=== PATIENT | male | born 1960 | race Caucasian/White ===

== ENCOUNTER 2018-03-30 12:55 | Emergency (ER) | payer BC, SELFPAY ==
[2018-03-30 13:08] VITALS: BP 157/93; PULSE 70; RESP 16; TEMP 36.7; O2SAT 98
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
[2018-03-30] MEDS: MORPHine 10 MG/ML VIAL 4 MG IVP (15:44)
[2018-03-30] MEDS: Ondansetron 4 MG/2 ML VIAL IVP (15:45)
--- NOTE | 2018-03-30 16:01 | NUR.NOTE ---
Verbal report to Lynn YEH at [facility]. Nursing Note:
== END 2018-03-30 16:14 | disposition short-term general hospital (02) ==
PROVIDERS: Emergency Provider Nurse Practitioner Family
DX: S22.010A Wedge compression fracture of first thoracic vertebra, initial encounter for closed fracture (principal); S22.030A Wedge compression fracture of third thoracic vertebra, initial encounter for closed fracture; S22.040A Wedge compression fracture of fourth thoracic vertebra, initial encounter for closed fracture; S12.601A Unspecified nondisplaced fracture of seventh cervical vertebra, initial encounter for closed fracture; S22.31XA Fracture of one rib, right side, initial encounter for closed fracture; V18.0XXA Pedal cycle driver injured in noncollision transport accident in nontraffic accident, initial encounter; Y93.55 Activity, bike riding
CPT/HCPCS: 96374; 96375; 99285; 70450; 72125; 72128; 99284; J2270; J2405